=== PATIENT | female | born 1955 ===

== ENCOUNTER 2021-08-02 17:17 | Outpatient (REF) | payer BC, SELFPAY ==
[2021-08-02 18:20] LABS: NT-proBNP 43 pg/mL (<300); TSH (W/Ref FT4) 1.81 uIU/mL (0.36-3.74); Troponin I < 50 ng/L (<or=60)
[2021-08-04 08:28] LABS: IgE <2 IU/mL (<158)
[2021-08-04 09:23] LABS: IgA 100 mg/dL (85-499); IgG 741 mg/dL (610-1,616); IgM 24 mg/dL (35-242)
== END 2021-08-02 17:18 | disposition home or self-care (01) ==
LOC: LBN 17:17
PROVIDERS: PCP Registered Nurse; Visit Provider Student in an Organized Health Care Education/Training Program
DX: U09.9 Post COVID-19 condition, unspecified (principal)
CPT/HCPCS: 82784; 82785; 82787; 83880; 84443; 84484